=== PATIENT | female | born 1940 | race Caucasian/White ===

== ENCOUNTER 2019-07-16 11:21 | Inpatient (IN) ==
[2019-07-16 11:57] LABS: Eosinophils # (auto) 0.04 K/uL (0-0.5); Eosinophils % (auto) 0.9 %; Hemoglobin 10.3 g/dL (12.0-16.0); Immature Granulocytes # (auto) 0.02 K/uL (0.00-0.02); Immature Granulocytes % (auto) 0.4 %; Lymphocytes # (auto) 0.31 K/uL (1.2-3.4); Lymphocytes % (auto) 6.8 %; Mean Corpuscular Hemoglobin 27.9 pg (25-34); Mean Corpuscular Hgb Conc 31.2 g/dL (32-36); Mean Corpuscular Volume 89.4 fL (80-100); Mean Platelet Volume 9.3 fL (7.4-10.4); Monocytes # (auto) 0.65 K/uL (0.11-0.59); Monocytes % (auto) 14.2 %; Neutrophils # (auto) 3.57 K/uL (1.4-6.5); Neutrophils % (auto) 77.7 %; Platelet Count 144 K/uL (130-400); Red Blood Count 3.69 M/uL (4.2-5.4); White Blood Count 4.59 K/uL (4.8-10.8)
[2019-07-16 12:07] LABS: INR 1.2 (0.9-1.1); Partial Thromboplastin Ratio 0.9; Partial Thromboplastin Time 24.7 Seconds (21.0-31.0); Prothrombin Time 11.7 Seconds (9.0-12.0)
[2019-07-16] MEDS ORDERED: ALBUTEROL 0.083% NEBU SOLN 3 ML VIAL NEB STA (12:07)
[2019-07-16 12:18] LABS: Alanine Aminotransferase 16 U/L (12-78); Aspartate Aminotransferase 11 U/L (15-37); BUN Creatinine Ratio 25.9 (10-20); Blood Urea Nitrogen 14 mg/dl (7-18); Calcium 8.5 mg/dl (8.5-10.1); Carbon Dioxide 29 mmol/L (21-32); Chloride 102 mmol/L (98-107); Est GFR (African American) 104.9; Est GFR (Non-African American) 90.5; Glucose 151 mg/dl (70-99); Potassium 4.2 mmol/L (3.5-5.1); Sodium 139 mmol/L (136-145)
[2019-07-16 12:23] LABS: Alkaline Phosphatase 61 U/L (45-117); Bilirubin,Total 0.8 mg/dl (0.2-1); Globulin 3.1 gm/dl (2.5-4.0); Total Protein 6.1 gm/dl (6.4-8.2); Troponin I < 0.015 ng/ml (0-0.045)
--- NOTE | 2019-07-16 12:30 | XRay Report ---
XR chest 1V portable CLINICAL HISTORY: Shortness of breath COMPARISON STUDY: 07/24/2015 FINDINGS: There are patchy bilateral asymmetric airspace opacities left greater than right. The findi ngs are suspicious for a pneumonia. Clinical correlation and radiographic follow-up is recommended. T here are no pleural effusions. There is no overt failure. Chronic changes involve the right proximal humerus. IMPRESSION: Bilateral asymmetric airspace opacities left greater than right. Pneumonia is the diagnos is of exclusion. Clinical and radiographic follow-up is recommended. Electronically signed by: Perez Medina M.D. 07/16/2019 12:29 PM
[2019-07-16 12:35] LABS: Influenza A virus by PCR Neg for Influ A (Neg); Influenza B virus by PCR Neg for Influ B (Neg)
[2019-07-16] MEDS ORDERED: CEFEPIME 1,000 MG in SYRINGE 0 ML IV STA (13:09)
[2019-07-16 13:14] LABS: Appearance Urine Clear (Clear); Bacteria Urine Automated Negative (Negative); Bilirubin Urine Negative (Negative); Blood Urine Negative (Negative); Color Urine Dark Yellow; Epithelial Cell Urine Auto >30 /lpf (0-5); Glucose Urine UA Negative (Negative); Ketones Urine Negative (Negative); Leukocyte Esterase Urine Negative (Negative); Nitrite Urine Positive (Negative); Protein Urine 2+ (Negative); RBC Urine Automated 0-4 /hpf (0-4); Specific Gravity Urine 1.023 (1.000-1.030); Urobilinogen Urine Negative (Negative); pH Urine 5.5 (4.5-7.5)
--- NOTE | 2019-07-16 16:42 | History & Physical Report ---
Date of Service July 16, 2019 Assessment & Plan (1) Acute respiratory failure: Admit to PCU on telemetry Vital signs every 4 hours Start the cefepime in the ER for pneumonia and continues with ceftriaxone with doxycycline empirically Lactate pending, BNP pending, blood cultures pending, procalcitonin pending, respiratory cultures Follow-up with daily CBC CMP. Replenish electrolytes DuoNeb's every 4 hours Continue Breo Ellipta Solu-Medrol 40 mg IV twice daily for 3 doses then taper down DVT prophylaxis heparin 5000 units every 12 hours Full code Present on Admission?: Yes (2) Pneumonia: As above Present on Admission?: Yes (3) Hypertension: Appears to be stable at this time, continue amlodipine 10 mg tablet p.o. daily, carvedilol 3.125 p.o. daily, coenzyme every 10 200 mg capsule p.o. daily, furosemide 40 mg p.o. daily, hydralazine 25 mg p.o. 3 times daily, isosorbide mononitrate ER 120 mg tablets every 24 hours p.o. daily. Monitor blood pressure every 4 hours and adjust medication as necessary. Present on Admission?: Yes (4) Congestive heart failure: As above, BNP pending. Present on Admission?: Yes (5) Diabetes mellitus type 2 in obese: Accu-Cheks AC and at bedtime, try to avoid metformin while patient is hospitalized due to possible hypoglycemia and need for other diagnostic procedures and nephrotoxicity that may do occur as a consequence. Use rather sliding scale insulin and managed per pharmacy. Present on Admission?: Yes (6) Hyperlipidemia: Lipid panel in a.m. Present on Admission?: Yes History of Present Illness Chief Complaint: Shortness of breath and respiratory failure Primary Care Provider: John Munoz DO Patient is a 79 years old female with past medical history of congestive heart failure, diabetes mellitus type 2, hypertension, hyperlipidemia, recurrent urinary tract infections who presents to the emergency room with a complaint of shortness of breath and febrile illness for 2 weeks. Patient said that she had subjective fever yesterday and chills. Patient he is resting comfortably in the bed. She is right now on 2 L of oxygen for hypoxia. She uses only 1 L at home at night. Patient is ambulatory. Good appetite. Patient denies headache, chest pain, abdominal pain frequency urgency hemoptysis hematuria dysuria syncope near syncope and/or diarrhea. Labs are reviewed: WBC leukopenia of 4.59, hemoglobin 10.3, hematocrit 33, platelets 144, PT 11.7, INR 1.2, APTT 24.7, sodium 139, potassium 4.2, BUN 14, creatinine 0.55, GFR 90.5, AST 11, ALT 16, troponin 0 0.015-, urine positive for nitrates, leukocyte esterase negative, 5-10 urine white blood cells. BNP pending. Chest x-rays: Bilateral asymmetric expansile spot opacities left greater than the right. Pneumonia is diagnosis of exclusion. Decision was made to admit patient to PCU on telemetry for pneumonia and possible congestive heart failure. Allergies Allergy/AdvReac Type Severity Reaction Status Date / Time Bactrim Allergy Unknown MOUTH SORES Verified 10/21/15 05:55 Cipro Allergy Unknown SORE MOUTH Verified 10/21/15 05:55 ciprofloxacin Allergy Unknown SORE MOUTH Verified 07/16/19 12:00 oxycodone Allergy Unknown UPSET Verified 07/16/19 12:00 STOMACH sulfamethoxazole Allergy Unknown MOUTH SORES Verified 07/16/19 12:00 trimethoprim Allergy Unknown MOUTH SORES Verified 07/16/19 12:00 Home Medications Home Medications Medication Instructions Recorded Confirmed Type Lactobacillus 1 cap PO DAILY cap 05/25/19 07/16/19 History acidophilus-Bifidobac.animalis 31 billion cell capsule albuterol sulfate HFA 90 2 puffs INH BID PRN 05/25/19 07/16/19 History mcg/actuation aerosol inhaler alprazolam 0.25 mg tablet 0.25 mg PO DAILY tab 05/25/19 07/16/19 History amlodipine 10 mg tablet 10 mg PO DAILY tab 05/25/19 07/16/19 History coenzyme Q10 200 mg capsule 200 mg PO DAILY cap 05/25/19 07/16/19 History fluticasone furoate 100 1 puffs INHALATION DAILY ea 05/25/19 07/16/19 History mcg-vilanterol 25 mcg/dose inhalation powder hydralazine 25 mg tablet 25 mg PO TID #270 tab 05/25/19 07/16/19 History insulin glargine (U-300) conc. 300 46 units SUBCUT HS ml 05/25/19 07/16/19 History unit/mL (3 mL) subcutaneous pen isosorbide mononitrate ER 120 mg 120 mg PO DAILY tab 05/25/19 07/16/19 History tablet,extended release 24 hr methenamine mandelate 1 gram tablet 1 g PO BID tab 05/25/19 07/16/19 History mycophenolate mofetil 500 mg tablet 500 mg PO BID #120 tab 05/25/19 07/16/19 History prednisone 5 mg tablet 5 mg PO DAILY #60 tab 05/25/19 07/16/19 History sacubitril 49 mg-valsartan 51 mg 1 tab PO DAILY tab 05/25/19 07/16/19 History tablet sitagliptin 50 mg-metformin 1,000 1 tab PO BID tab 05/25/19 07/16/19 History mg tablet carvedilol 3.125 mg PO DAILY 07/16/19 07/16/19 History furosemide 40 mg PO DAILY 07/16/19 07/16/19 History naproxen 500 mg PO BID 07/16/19 07/16/19 History pyridostigmine bromide 60 mg PO DAILY 07/16/19 07/16/19 History rosuvastatin 5 mg PO DAILY 07/16/19 07/16/19 History Past Med/Surg History Medical History Arthritis Bladder disease Diabetes mellitus Dysuria H/O: hysterectomy HTN (hypertension) Hx of bronchitis Low back pain Nocturia Urinary urgency Family History Father Cardiac disorder Social History marital status: / current occupational status: retired Feels Safe at Home: Yes Smoking Status: Former smoker Review of Systems Review of Systems: All systems reviewed & are unremarkable except as noted in HPI & below Physical Exam Constitutional: WD/WN, vitals as above well developed, + ill appearing and + morbidly obese Eyes: PERRL, conjunctivae normal, anicteric sclerae ENMT: external ear and nose normal, oropharynx normal Neck: trachea midline, no thyromegaly Respiratory: normal respiratory effort Auscultation: + crackles, + wheezes and + bronchovesicular breath sounds Cardiovascular: RRR, no murmur, no edema Gastrointestinal (Abdomen): normal bowel sounds, soft, nontender, no hepatosplenomegaly Musculoskeletal: no cyanosis or clubbing, extremities motor strength 5/5 Skin: no rashes, warm and dry Neurologic: patellar DTR's 2+ bilat, sensation intact Psychiatric: A+Ox3, euthymic affect Lymphatic: no cervical or axillary lymphadenopathy Results & Data Vital Signs (Past 12 Hours) Vital Signs Temp Pulse Pulse Resp BP Pulse Ox 07/16/19 14:30 77 91 07/16/19 13:30 82 23 148/59 H 96 07/16/19 13:00 81 21 147/74 H 97 07/16/19 12:46 78 29 H 155/59 H 88 L 07/16/19 12:45 83 21 95 07/16/19 12:22 79 16 94 07/16/19 11:55 95 07/16/19 11:39 95 07/16/19 11:23 36.9 C 74 24 110/70 94 Code Status & VTE Plan Code Status Full code VTE Prophylaxis Plan VTE Prophylaxis will be ordered: Yes PG Care Time/CCT Total # of Minutes Spent Total Time Spent with Patient: Total time spent is greater than 50% in coordination of care (as documented) at patient's floor/unit and/or counseling patient:
--- NOTE | 2019-07-16 18:16 | Emergency Department Note ---
Entered by So Brush acting as a scribe for History of Present Illness General Chief complaint: Shortness of Breath/Dyspnea Stated complaint: BREATHLESS,WEAKNESS Source: patient History of Present Illness Onset (ago): day(s) (today) Location: chest Pain Consistency: + other (persistent) Maximum Pain Intensity: 0 Quality: + other (shortness of breath) Relieved By: + other (oxygen) Exacerbated By: + movement (exertion) Associated symptoms: + denies other symptoms (weight gain, leg swelling, rhinorrhea, ear pain, abdominal pain, dysuria), + cough and + other (sore throat, urinary frequency) The patient is a 79 year old female who presents to the Emergency Room with complaints of persistent shortness of breath starting today. The patient states that 10 days ago she started having a cold. She states that she had a dry cough and a sore throat. She reports that the cough was dry for 3-4 days and then became productive. She notes that she would cough up clear, but it was so thick that it made her feel like she was choking. She states that a week ago she went to her PCP and they gave her Tessalon Perles and Cephalexin to treat a UTI. She states that today her cough seemed better, but she was short of breath. She states that it is worse with exertion. She reports that she put her oxygen on that she typically only wears 1 L at night because she couldnt breathe. She states that it offered some relief, but she decided to come to the ED. The patient notes that she has only been on oxygen at night since she was sick a year ago with similar symptoms. The patient complains of urinary frequency. The patient denies weight gain, leg swelling, rhinorrhea, ear pain, abdominal pain, and dysuria. Home Medications Home Medications Medication Instructions Recorded Confirmed Type Lactobacillus 1 cap PO DAILY cap 05/25/19 07/16/19 History acidophilus-Bifidobac.animalis 31 billion cell capsule albuterol sulfate HFA 90 2 puffs INH BID PRN 05/25/19 07/16/19 History mcg/actuation aerosol inhaler alprazolam 0.25 mg tablet 0.25 mg PO DAILY tab 05/25/19 07/16/19 History amlodipine 10 mg tablet 10 mg PO DAILY tab 05/25/19 07/16/19 History coenzyme Q10 200 mg capsule 200 mg PO DAILY cap 05/25/19 07/16/19 History fluticasone furoate 100 1 puffs INHALATION DAILY ea 05/25/19 07/16/19 History mcg-vilanterol 25 mcg/dose inhalation powder hydralazine 25 mg tablet 25 mg PO TID #270 tab 05/25/19 07/16/19 History insulin glargine (U-300) conc. 300 46 units SUBCUT HS ml 05/25/19 07/16/19 History unit/mL (3 mL) subcutaneous pen isosorbide mononitrate ER 120 mg 120 mg PO DAILY tab 05/25/19 07/16/19 History tablet,extended release 24 hr methenamine mandelate 1 gram tablet 1 g PO BID tab 05/25/19 07/16/19 History mycophenolate mofetil 500 mg tablet 500 mg PO BID #120 tab 05/25/19 07/16/19 History prednisone 5 mg tablet 5 mg PO DAILY #60 tab 05/25/19 07/16/19 History sacubitril 49 mg-valsartan 51 mg 1 tab PO DAILY tab 05/25/19 07/16/19 History tablet sitagliptin 50 mg-metformin 1,000 1 tab PO BID tab 05/25/19 07/16/19 History mg tablet carvedilol 3.125 mg PO DAILY 07/16/19 07/16/19 History furosemide 40 mg PO DAILY 07/16/19 07/16/19 History naproxen 500 mg PO BID 07/16/19 07/16/19 History pyridostigmine bromide 60 mg PO DAILY 07/16/19 07/16/19 History rosuvastatin 5 mg PO DAILY 07/16/19 07/16/19 History Allergies Allergy/AdvReac Type Severity Reaction Status Date / Time Bactrim Allergy Unknown MOUTH SORES Verified 10/21/15 05:55 Cipro Allergy Unknown SORE MOUTH Verified 10/21/15 05:55 ciprofloxacin Allergy Unknown SORE MOUTH Verified 07/16/19 12:00 oxycodone Allergy Unknown UPSET Verified 07/16/19 12:00 STOMACH sulfamethoxazole Allergy Unknown MOUTH SORES Verified 07/16/19 12:00 trimethoprim Allergy Unknown MOUTH SORES Verified 07/16/19 12:00 Past Med/Surg History Medical History Arthritis Bladder disease Diabetes mellitus Dysuria H/O: hysterectomy HTN (hypertension) Hx of bronchitis Low back pain Nocturia Urinary urgency Family History Father Cardiac disorder Social History Preferred Language: Tuvaluan Communication Ability: Effective Carriage Feeder Required: No Beliefs That Will Affect Care: None marital status: / Current Living Situation: Family Current Living Situation Comment: living with daughter current occupational status: retired Other Information That Helps Us Care for You: No Feels Safe at Home: Yes Safety Concerns: Feels Safe At This Time Smoking Status: Former smoker Tobacco Type: cigarettes ; Cigarettes Per Day: 3- 4 ; Do You Dip or Chew Tobacco: No ; Smoking End Date: 2015 ; Second Hand Exposure: No ; Tobacco Cessation Education Requested by Patient: No Hx Alcohol Use: No Hx Substance Use: No Review of Systems See HPI for pertinent positives & negatives. and A total of 10 systems reviewed and were otherwise negative Physical Exam Vital Signs Vital Signs - 24 hr 07/16/19 11:23 07/16/19 11:39 07/16/19 11:55 Temperature 36.9 C Temperature Source Oral Sepsis Recent Fever Within 48 Hours No Sepsis New/Unexplained Change in Mental Status No Sepsis Action Taken by Nursing No Action Required Pulse Rate 74 Pulse Rate [Apical] Pulse Rate from SpO2 Sensor Respiratory Rate 24 Respiratory Effort / Characteristics Non-Labored Spontaneous Respiratory Depth Normal Respiratory Pattern Regular Blood Pressure 110/70 Blood Pressure Mean 83 Blood Pressure Position Sitting Pulse Oximetry 94 95 95 Oxygen Delivery Method Nasal Cannula Nasal Cannula Nasal Cannula Oxygen Flow Rate 2 2 2 07/16/19 12:22 07/16/19 12:45 07/16/19 12:46 Temperature Temperature Source Sepsis Recent Fever Within 48 Hours Sepsis New/Unexplained Change in Mental Status Sepsis Action Taken by Nursing Pulse Rate 83 78 Pulse Rate [Apical] 79 Pulse Rate from SpO2 Sensor 73 Respiratory Rate 16 21 29 H Respiratory Effort / Characteristics Non-Labored Spontaneous Respiratory Depth Respiratory Pattern Blood Pressure 155/59 H Blood Pressure Mean 91 Blood Pressure Position Pulse Oximetry 94 95 88 L Oxygen Delivery Method Nasal Cannula Nasal Cannula Room Air Oxygen Flow Rate 2 2 07/16/19 13:00 07/16/19 13:30 07/16/19 14:30 Temperature Temperature Source Sepsis Recent Fever Within 48 Hours Sepsis New/Unexplained Change in Mental Status Sepsis Action Taken by Nursing Pulse Rate 81 82 77 Pulse Rate [Apical] Pulse Rate from SpO2 Sensor 80 78 77 Respiratory Rate 21 23 Respiratory Effort / Characteristics Respiratory Depth Respiratory Pattern Blood Pressure 147/74 H 148/59 H Blood Pressure Mean 98 88 Blood Pressure Position Pulse Oximetry 97 96 91 Oxygen Delivery Method Nasal Cannula Nasal Cannula Oxygen Flow Rate 2 2 GENERAL: Sitting up in bed on 1L nasal cannular. Talking in full sentences. No acute distress. EYE EXAM: normal conjunctiva OROPHARYNX: no exudate, no erythema, lips, buccal mucosa, and tongue normal and mucous membranes are moist NECK: supple, no nuchal rigidity, no adenopathy, non-tender LUNGS: Diminished breath sounds at the bases. Normal chest wall mechanics HEART: no murmurs, S1 normal and S2 normal ABDOMEN: abdomen soft, non-tender, normo-active bowel sounds, no masses, no rebound or guarding. BACK: Back is symmetrical on inspection and there is no deformity, no midline tenderness, no CVA tenderness. SKIN: no rashes and no bruising UPPER EXTREMITIES: upper extremities are grossly normal. LOWER EXTREMITIES: No pitting edema. Calves are equal bilaterally. NEURO EXAM: Normal sensorium, cranial nerves II-XII grossly intact, normal speech, no gross weakness of arms, no gross weakness of legs. Course ED COURSE: Vital signs were reviewed and showed hypertension. The patients medical record was reviewed The above diagnostic studies were performed and reviewed. ED treatments and interventions as stated above. 1203: The patient was evaluated in room C9. A complete history and physical examination was performed. 1408: I discussed the patient's case with Dr. Diane ALBARADO Hospitalist. She will evaluate the patient for further management. 1415: Upon reevaluation, the patient is resting comfortably. I discussed my findings with the patient and she understands and agrees with the treatment plan. Based on the patients age, coexisting illnesses, exam and lab findings the deci ten to treat as an inpatient was made. The patient remained stable while under my care. The patient will be evaluated for further management. Consultations Consultation #1: I discussed the patient's case with Dr. Diane ALBARADO Hospitalist. She will evaluate the patient for further management. Time: 14:08 Administered Medications Discontinued Medications Albuterol (Ventolin 0.083% 2.5mg/3ml) 2.5 mg NEB NOW STA Stop: 07/16/19 12:08 Last Admin: 07/16/19 12:22 Dose: 2.5 mg Documented by: [id number] Cefepime HCl 1,000 mg/ Syringe 11.3 mls @ 5.5 mls/min IV NOW STA; Protocol Stop: 07/16/19 13:11 Last Admin: 07/16/19 14:01 Dose: 5.5 mls/min Documented by: [id number] Medical Decision Making Differential Diagnosis Differential diagnoses includes but is not limited to pneumonia, bronchitis, COPD/Asthma exacerbation, pneumothorax, pulmonary embolism, congestive heart failure, acute coronary syndrome Medical Records Attestation: I reviewed the patient's medical records. Home Medications Current Medication List: was personally reviewed by me Laboratory Data Attestation: I reviewed the patient's lab results. Result diagrams: 07/16/19 11:40 07/16/19 11:40 Lab Results 07/16/19 07/16/19 07/16/19 Range/Units 11:40 11:40 11:40 WBC 4.59 L (4.8-10.8) K/uL RBC 3.69 L (4.2-5.4) M/uL Hgb 10.3 L (12.0-16.0) g/dL Hct 33.0 L (37-47) % MCV 89.4 (80-100) fL MCH 27.9 (25-34) pg MCHC 31.2 L (32-36) g/dL RDW Std Deviation 52.0 H (36.4-46.3) fL RDW Coeff of John 16.0 H (11.5-14.5) % Plt Count 144 (130-400) K/uL MPV 9.3 (7.4-10.4) fL Immature Gran % (Auto) 0.4 % Neut % (Auto) 77.7 % Lymph % (Auto) 6.8 % Bleckley % (Auto) 14.2 % Eos % (Auto) 0.9 % Baso % (Auto) 0.0 % Immature Gran # (Auto) 0.02 (0.00-0.02) K/uL Neut # (Auto) 3.57 (1.4-6.5) K/uL Lymph # (Auto) 0.31 L (1.2-3.4) K/uL Bleckley # (Auto) 0.65 H (0.11-0.59) K/uL Eos # (Auto) 0.04 (0-0.5) K/uL Baso # (Auto) 0.00 (0-0.2) K/uL PT 11.7 (9.0-12.0) Seconds INR 1.2 H (0.9-1.1) APTT 24.7 (21.0-31.0) Seconds PTT Ratio 0.9 Sodium 139 (136-145) mmol/L Potassium 4.2 (3.5-5.1) mmol/L Chloride 102 (98-107) mmol/L Carbon Dioxide 29 (21-32) mmol/L Anion Gap 8.0 (3-11) BUN 14 (7-18) mg/dl Creatinine 0.55 L (0.6-1.2) mg/dl Est Cr Clr Drug Dosing Not Reportable Est GFR ( Amer) 104.9 Est GFR (Non-Af Amer) 90.5 BUN/Creatinine Ratio 25.9 H (10-20) Glucose 151 H (70-99) mg/dl Calcium 8.5 (8.5-10.1) mg/dl Total Bilirubin 0.8 (0.2-1) mg/dl AST 11 L (15-37) U/L ALT 16 (12-78) U/L Alkaline Phosphatase 61 (45-117) U/L Troponin I < 0.015 (0-0.045) ng/ml Total Protein 6.1 L (6.4-8.2) gm/dl Albumin 3.0 L (3.4-5.0) gm/dl Globulin 3.1 (2.5-4.0) gm/dl Albumin/Globulin Ratio 1.0 (0.9-2) Urine Color Urine Appearance (Clear) Urine pH (4.5-7.5) Ur Specific [place] (1.000-1.030) Urine Protein (Negative) Urine Glucose (UA) (Negative) Urine Ketones (Negative) Urine Blood (Negative) Urine Nitrite (Negative) Urine Bilirubin (Negative) Urine Urobilinogen (Negative) Ur Leukocyte Esterase (Negative) Urine WBC (Auto) (0-5) /hpf Urine RBC (Auto) (0-4) /hpf U Hyaline Cast (Auto) (0-5) /lpf U Epithel Cells (Auto) (0-5) /lpf Urine Bacteria (Auto) (Negative) Influenza Type A (PCR) (Neg) Influenza Type B (PCR) (Neg) 07/16/19 07/16/19 Range/Units 11:55 12:45 WBC (4.8-10.8) K/uL RBC (4.2-5.4) M/uL Hgb (12.0-16.0) g/dL Hct (37-47) % MCV (80-100) fL MCH (25-34) pg MCHC (32-36) g/dL RDW Std Deviation (36.4-46.3) fL RDW Coeff of John (11.5-14.5) % Plt Count (130-400) K/uL MPV (7.4-10.4) fL Immature Gran % (Auto) % Neut % (Auto) % Lymph % (Auto) % Bleck[place] % (Auto) % Eos % (Auto) % Baso % (Auto) % Immature Gran # (Auto) (0.00-0.02) K/uL Neut # (Auto) (1.4-6.5) K/uL Lymph # (Auto) (1.2-3.4) K/uL [place] # (Auto) (0.11-0.59) K/uL Eos # (Auto) (0-0.5) K/uL Baso # (Auto) (0-0.2) K/uL PT (9.0-12.0) Seconds INR (0.9-1.1) APTT (21.0-31.0) Seconds PTT Ratio Sodium (136-145) mmol/L Potassium (3.5-5.1) mmol/L Chloride (98-107) mmol/L Carbon Dioxide (21-32) mmol/L Anion Gap (3-11) BUN (7-18) mg/dl Creatinine (0.6-1.2) mg/dl Est Cr Clr Drug Dosing Est GFR ( Amer) Est GFR (Non-Af Amer) BUN/Creatinine Ratio (10-20) Glucose (70-99) mg/dl Calcium (8.5-10.1) mg/dl Total Bilirubin (0.2-1) mg/dl AST (15-37) U/L ALT (12-78) U/L Alkaline Phosphatase (45-117) U/L Troponin I (0-0.045) ng/ml Total Protein (6.4-8.2) gm/dl Albumin (3.4-5.0) gm/dl Globulin (2.5-4.0) gm/dl Albumin/Globulin Ratio (0.9-2) Urine Color Dark Yellow Urine Appearance Clear (Clear) Urine pH 5.5 (4.5-7.5) Ur Specific [place] 1.023 (1.000-1.030) Urine Protein 2+ H (Negative) Urine Glucose (UA) Negative (Negative) Urine Ketones Negative (Negative) Urine Blood Negative (Negative) Urine Nitrite Positive A (Negative) Urine Bilirubin Negative (Negative) Urine Urobilinogen Negative (Negative) Ur Leukocyte Esterase Negative (Negative) Urine WBC (Auto) 5-10 H (0-5) /hpf Urine RBC (Auto) 0-4 (0-4) /hpf U Hyaline Cast (Auto) 1-5 (0-5) /lpf U Epithel Cells (Auto) >30 H (0-5) /lpf Urine Bacteria (Auto) Negative (Negative) Influenza Type A (PCR) Neg for Influ A (Neg) Influenza Type B (PCR) Neg for Influ B (Neg) Imaging Data Radiologist's Impression: Radiology results as stated below per my review and the radiologist's interpretation: XR chest 1V portable CLINICAL HISTORY: Shortness of breath COMPARISON STUDY: 07/24/2015 FINDINGS: There are patchy bilateral asymmetric airspace opacities left greater than right. The findings are suspicious for a pneumonia. Clinical correlation and radiographic follow-up is recommended. There are no pleural effusions. There is no overt failure. Chronic changes involve the right proximal humerus. IMPRESSION: Bilateral asymmetric airspace opacities left greater than right. Pne umonia is the diagnosis of exclusion. Clinical and radiographic follow-up is recommended. Electronically signed by: Perez Medina M.D. 07/16/2019 12:29 PM ECG Data Attestation: I personally reviewed and interpreted this ECG as follows: Indication: SOB/dyspnea Rate (beats per minute): 78 Rhythm: sinus rhythm Findings: + other (normal axis), + RBBB, + ST depression (V1-V3) and + T-wave inversion Comparison ECG Date: from (07/24/2015) Change: the following changes noted (TWI, RBBB, and ST depression are new) Blood Pressure Blood Pressure Findings: Elevated blood pressure Blood Pressure Disposition: further management by hospitalist TREMAINE Narrative Patient is a 79-year-old female who presents the ER for cough, congestion associate with shortness of breath. She has been increasing her nasal cannula which she normally only wears at night. Her symptoms started mainly on Tuesday. History of myasthenia gravis. IV was established blood work was obtained and showed a mild leukopenia. Mild anemia 10.3. INR was unremarkable. BMP along with LFTs bilirubin and troponin was negative. UA did have a small amount nitrates. Chest x-ray with bilateral infiltrates. Patient was given IV antibiotics. Influenza was negative. She is given IV fluids. She was on 1 L nasal cannula while in the ER. She was updated bedside. She was discussed with the hospitalist for admission for bilateral pneumonia. EKG did show new right bundle branch block. Impression & Plan Bilateral pneumonia, Shortness of breath Discharge Plan Visit Data Chief Complaint: Shortness of Breath/Dyspnea Stated Complaint: BREATHLESS,WEAKNESS ED Provider: Ben Aguillon Discharge Problem: Bilateral pneumonia, Shortness of breath Patient Disposition: Being Evaluated by Hospitalist Discharge Problem: Bilateral pneumonia Qualifiers: Pneumonia type: due to unspecified organism Lung location: unspecified part of lung Qualified Code(s): J18.9 - Pneumonia, unspecified organism The scribe's documentation has been prepared under my direction and personally reviewed by me in its entirety. I confirm that the note above accurately reflects all work, treatment, procedures, and medical decision making performed by me.
[2019-07-16] MEDS ORDERED: NON-FORMULARY MEDICATION (Coenzyme Q10 200 MG) PO SCH (18:34)
[2019-07-16] MEDS ORDERED: ACETAMINOPHEN 325 MG TAB PO PRN (18:34)
[2019-07-16] MEDS ORDERED: DEXTROSE 50% 50 ML SYRINGE IV PRN (18:34)
[2019-07-16] MEDS ORDERED: SODIUM CHLORIDE 0.9% 1000ML 500 ML IV SCH (18:34)
[2019-07-16] MEDS ORDERED: GLUCOSE 10 TABS/TUBE PO PRN (18:34)
[2019-07-16] MEDS ORDERED: MAGNESIUM HYDROXIDE SUSP 30 ML UDC PO PRN (18:34)
[2019-07-16] MEDS ORDERED: CARBOHYDRATES FOR HYPOGLYCEMIA PO PRN (18:34)
[2019-07-16] MEDS ORDERED: ZOLPIDEM TARTRATE 5 MG TAB PO PRN (18:34)
[2019-07-16] MEDS ORDERED: POLYETHYLENE (MIRALAX) 17 GM PACK PO PRN (18:34)
[2019-07-16] MEDS ORDERED: GLUCOSE 40% GEL 15 GM TUBE PO PRN (18:34)
[2019-07-16] MEDS ORDERED: GLUCAGON FOR INJ 1 MG VIAL SQ PRN (18:34)
[2019-07-16] MEDS ORDERED: ALBUT/IPRATROP 3MG/0.5MG NEB 3 ML VIAL NEB PRN (18:34)
[2019-07-16] MEDS ORDERED: ALUMINUM/MAGNESIUM SUSP 30 ML UDC PO PRN (18:34)
[2019-07-16] MEDS ORDERED: ONDANSETRON INJ 2 MG/ML 2 ML VIAL IV PRN (18:34)
[2019-07-16] MEDS ORDERED: PHARMACY GLYCEMIC MGMT CONSULT PRN (20:02)
[2019-07-16] MEDS: ROSUVASTATIN CALCIUM 5 MG TAB PO SCH (20:28)
[2019-07-16] MEDS: AMLODIPINE BESYLATE 5 MG TAB PO SCH (20:29)
[2019-07-16] MEDS: NAPROXEN 250 MG TAB PO SCH (20:30)
[2019-07-16] MEDS: MYCOPHENOLATE MOFETIL 250 MG CAP PO SCH (20:30)
[2019-07-16] MEDS: FUROSEMIDE 40 MG TAB PO SCH (20:31)
[2019-07-16] MEDS ORDERED: INSULIN GLARGINE SQ SCH (21:00)
[2019-07-16] MEDS ORDERED: INSULIN GLARGINE SOLOSTAR 100 UNITS/ML 3 ML PEN SC ONE (21:00)
[2019-07-16] MEDS: SACUBITRIL-VALSARTAN 49/51 MG TAB PO SCH (21:29)
[2019-07-16] MEDS: METHENAMINE HIPPURATE 1 GM TAB PO SCH (21:29)
[2019-07-16] MEDS: HEPARIN SOD 5,000 UNIT/0.5 ML VIAL SQ SCH (21:30)
[2019-07-16] MEDS: PYRIDOSTIGMINE BROMIDE 60 MG TAB PO SCH (21:30)
[2019-07-16] MEDS: methylPREDNISolone 40 MG in SYRINGE 0 ML IV SCH (21:31)
[2019-07-16] MEDS: ALPRAZolam 0.25 MG TABLET PO SCH (21:34)
[2019-07-16] MEDS: DOXYCYCLINE HYCLATE 100 MG in DEXTROSE 5% 100 ML IV SCH (21:35)
[2019-07-16] MEDS: INSULIN ASPART 100 UNITS/ML 3 ML PEN SC SCH (21:40)
[2019-07-17] MEDS: INSULIN ASPART 100 UNITS/ML 3 ML PEN SC SCH ×6 (00:19→21:03)
[2019-07-17 05:44] LABS: Hematocrit (blood only) 33.6 % (37-47); Hemoglobin 10.7 g/dL (12.0-16.0); Immature Granulocytes # (auto) 0.04 K/uL (0.00-0.02); Immature Granulocytes % (auto) 1.3 %; Lymphocytes # (auto) 0.23 K/uL (1.2-3.4); Lymphocytes % (auto) 7.6 %; Mean Corpuscular Hemoglobin 28.4 pg (25-34); Mean Corpuscular Hgb Conc 31.8 g/dL (32-36); Mean Corpuscular Volume 89.1 fL (80-100); Mean Platelet Volume 9.7 fL (7.4-10.4); Monocytes # (auto) 0.13 K/uL (0.11-0.59); Monocytes % (auto) 4.3 %; Neutrophils # (auto) 2.64 K/uL (1.4-6.5); Neutrophils % (auto) 86.8 %; Platelet Count 146 K/uL (130-400); RDW Coefficient of Variation 15.9 % (11.5-14.5); RDW Standard Deviation 51.5 fL (36.4-46.3); Red Blood Count 3.77 M/uL (4.2-5.4); White Blood Count 3.04 K/uL (4.8-10.8)
[2019-07-17 06:14] LABS: BUN Creatinine Ratio 26.9 (10-20); Calcium 8.5 mg/dl (8.5-10.1); Creatinine Clr Calc Pharmacy 122.3 ml/min; Est GFR (African American) 110.4; Est GFR (Non-African American) 95.3; Potassium 4.2 mmol/L (3.5-5.1)
[2019-07-17 06:25] LABS: Bilirubin,Total 0.6 mg/dl (0.2-1); Thyroid Stimulating Hormone 0.303 uIu/ml (0.300-4.500)
[2019-07-17 06:27] LABS: Estimated Average Glucose 105 mg/dl; Hemoglobin A1C 5.3 % (4.5-5.6)
[2019-07-17] MEDS: ISOSORBIDE MONO EXTENDED REL 60 MG TABCR PO SCH (07:54)
[2019-07-17] MEDS: HEPARIN SOD 5,000 UNIT/0.5 ML VIAL SQ SCH ×2 (07:55→21:08)
[2019-07-17] MEDS: NAPROXEN 250 MG TAB PO SCH ×2 (07:56→21:03)
[2019-07-17] MEDS: MYCOPHENOLATE MOFETIL 250 MG CAP PO SCH ×2 (07:57→21:06)
[2019-07-17] MEDS: FUROSEMIDE 40 MG TAB PO SCH (07:58)
[2019-07-17] MEDS: AMLODIPINE BESYLATE 5 MG TAB PO SCH (08:00)
[2019-07-17] MEDS: ROSUVASTATIN CALCIUM 5 MG TAB PO SCH (08:00)
[2019-07-17] MEDS: METHENAMINE HIPPURATE 1 GM TAB PO SCH ×2 (08:01→21:03)
[2019-07-17] MEDS: PYRIDOSTIGMINE BROMIDE 60 MG TAB PO SCH (08:01)
[2019-07-17] MEDS: SACUBITRIL-VALSARTAN 49/51 MG TAB PO SCH (08:02)
[2019-07-17] MEDS: methylPREDNISolone 40 MG in SYRINGE 0 ML IV SCH (08:03)
[2019-07-17] MEDS: LACTOBACILLUS ACIDOPHILUS 1 GM PACK PO SCH (08:03)
[2019-07-17] MEDS: carvediloL 3.125 MG TAB PO SCH (08:04)
[2019-07-17] MEDS: DOXYCYCLINE HYCLATE 100 MG in DEXTROSE 5% 100 ML IV SCH ×2 (08:08→21:01)
[2019-07-17] MEDS: cefTRIAXone SODIUM 2,000 MG in DEXTROSE 5% 50 ML IV SCH (08:10)
[2019-07-17] MEDS: ALPRAZolam 0.25 MG TABLET PO SCH ×2 (08:17→21:18)
[2019-07-17] MEDS ORDERED: INSULIN GLARGINE SOLOSTAR 100 UNITS/ML 3 ML PEN SC ONE ×2 (09:00→21:00)
[2019-07-17] MEDS ORDERED: FLUTICASONE FUROATE VILANTEROL INH SCH (09:00)
[2019-07-17] MEDS ORDERED: Nursing to Pharmacy Communication ONE (09:48)
--- NOTE | 2019-07-17 14:36 | Hospitalist Progress Note ---
Date of Service July 17, 2019 Assessment & Plan (1) Pneumonia: CXR on 07/16 showed airspace opacities left greater than right. Flu swab was negative. - Continue ceftriaxone/doxycycline - Will taper steroid to prednisone daily from IV - Can worsen weakness from acetylcholinesterase inhibitors, so do not want a prolonged period - Continue DuoNebs PRN (2) Acute respiratory failure: Due to pneumonia. - See above (3) Hypertension: BP 125/65. - Continue home amlodipine, carvedilol, furosemide, hydralazine, and Imdur (4) Congestive heart failure: No major shortness of breath at present. Low concern for exacerbation. - BNP was 1025 on admission. - Continue heart failure regimen (5) Diabetes mellitus type 2 in obese: A1c was 5.3% this admission. - Hold home oral meds. - Sliding scale insulin (6) Hyperlipidemia: - Continue statin (7) Myasthenia gravis: Presumed diagnosis of myasthenia gravis given the CellCept & pyridostigmine. - Continue home meds - No indication of exacerbation at this time - Avoid meds that can potentiate an MG crisis. (8) DVT prophylaxis: Heparin 5000 units Q12h Subjective Feeling better today. Tired because she did not sleep well. Some cough still. Review of Systems Review of Systems: All systems reviewed & are unremarkable except as noted in HPI & below Physical Exam Constitutional: WD/WN, vitals as above Eyes: EOM intact bilaterally; no conjunctival abnormality ENMT: external ear and nose normal, oropharynx normal Neck: trachea midline, no thyromegaly normal visual inspection Respiratory: normal respiratory effort, lungs clear to auscultation no respiratory distress Cardiovascular: RRR, no murmur, no edema Gastrointestinal (Abdomen): Inspection/Auscultation: abdomen normal to inspection; abdomen not distended Musculoskeletal: no cyanosis or clubbing, extremities motor strength 5/5 Skin: no rashes, warm and dry Neurologic: moves all extremities and awake Psychiatric: Orientation: alert, oriented to person and cooperative Results & Data Vital Signs (Past 12 Hours) Vital Signs Temp Pulse Pulse Pulse Resp BP Pulse Ox 07/17/19 13:11 125/64 07/17/19 11:55 36.7 C 59 L 20 103/51 L 91 07/17/19 07:44 36.4 C L 74 18 164/84 H 94 07/17/19 07:08 139/66 97 07/17/19 06:26 67 07/17/19 03:33 92 07/17/19 03:30 36.7 C 71 18 130/59 L 87 L PG Care Time/CCT Total # of Minutes Spent Total Time Spent with Patient: Total time spent is greater than 50% in coordin ation of care (as documented) at patient's floor/unit and/or counseling patient:
--- NOTE | 2019-07-17 15:03 | Pharmacy Report ---
Glycemic Control Consultation - Date of Service July 17, 2019 - Scope Scope: Glycemic Pharmacist consulted for glycemic control and to write orders per [facility] inpatient glycemic control protocol - Objective Weight: 107.7 kg Accuchecks BSG (last 24hrs): 07/16/19 07/17/19 07/17/19 20:40 00:10 04:16 Glucose POC Glucose 192 H 186 H 281 H 07/17/19 07/17/19 07/17/19 05:13 07:18 11:06 Glucose 248 H POC Glucose 204 H 91 Laboratory Data (last 24hrs): 07/17/19 05:13 Potassium 4.2 Carbon Dioxide 29 Anion Gap 6.0 Creatinine 0.47 L Est Cr Clr Drug Dosing 122.3 HbA1c: Hemoglobin A1c 5.3 % (4.5-5.6) 07/17/19 05:13 - Recent Pertinent Medications Outpatient Anti-diabetic Regimen: * Toujeo 46 units SC HS * Metformin/sitagliptin 1000/50 mg po BID * A1c = 5.3 % 07/17/19 The patient is currently receiving: * Basal insulin: Lantus 46 units x1 07/16 PM * Correctional Insulin: Novolog Correction per scale ACHS Goal Range: Low 110 mg/dL - High 140 mg/dL Correction Factor: 15 mg/dL/unit * Prandial insulin: Per carb ratio of 1 unit per 5 grams CHO consumed * Oral Agents: On hold Risk Factors for Insulin Resistance: * Steroids: methylprednisolone 40 mg IV q12h (scheduled to stop after dose tonight) * Infection: PNA, on ceftriaxone and doxycycline * Diet: T2DM - Assessment & Plan Assessment & Plan: ASSESSMENT: * 79 yo F with persistent hyperglycemia last night and overnight. * AM fasting BSG elevated to 204 mg/dL despite a total of 14 units of correctional insulin received overnight. Will give an additional 20 units of Lantus this AM * BSG decreased significantly from breakfast to lunch (204 to 91 mg/dL) - possibly 2nd Novolog parameters too tight. Will loosen Novolog * Will add sliding scale Lantus tonight based on BSG - will not be too aggressive as steroids are likely tapering tomorrow * Will add one overnight check 2nd decreased Lantus dose this evening PLAN FOR INPATIENT GLYCEMIC CONTROL: * Holding outpatient oral diabetes medications * Basal insulin * Lantus 20 units SQ x1 this AM then 15-30 units tonight if BSG > 110 mg/dL * Bolus insulin * NovoLog per scale ACHS or Q6hrs while NPO * Goal Range: Low 110 mg/dL - High 140 mg/dL * Correction Factor: 20 mg/dL/unit * Nutritional / Prandial insulin per carb ratio of 1 unit per 7 grams CHO consumed * Please note that the plan above was derived based on current level of insulin resistance and hospital stress. These recommendations are appropriate for inpatient admission only. Plan of care upon discharge will need to be reassessed to avoid potential outpatient hypo/hyperglycemia. Thank you.
[2019-07-18] MEDS ORDERED: INSULIN ASPART 100 UNITS/ML 3 ML PEN SC SCH (02:00)
[2019-07-18 06:59] LABS: Basophils # (auto) 0.01 K/uL (0-0.2); Basophils % (auto) 0.2 %; Eosinophils # (auto) 0.03 K/uL (0-0.5); Eosinophils % (auto) 0.6 %; Hematocrit (blood only) 33.6 % (37-47); Hemoglobin 10.5 g/dL (12.0-16.0); Immature Granulocytes # (auto) 0.04 K/uL (0.00-0.02); Immature Granulocytes % (auto) 0.8 %; Mean Corpuscular Hemoglobin 28.1 pg (25-34); Mean Corpuscular Hgb Conc 31.3 g/dL (32-36); Mean Corpuscular Volume 89.8 fL (80-100); Mean Platelet Volume 9.8 fL (7.4-10.4); Monocytes # (auto) 0.52 K/uL (0.11-0.59); Monocytes % (auto) 10.4 %; Neutrophils # (auto) 3.82 K/uL (1.4-6.5); Platelet Count 171 K/uL (130-400); RDW Standard Deviation 51.9 fL (36.4-46.3); Red Blood Count 3.74 M/uL (4.2-5.4); White Blood Count 5.02 K/uL (4.8-10.8)
[2019-07-18 07:27] LABS: Albumin Level 3.1 gm/dl (3.4-5.0); BUN Creatinine Ratio 35.4 (10-20); Calcium 8.9 mg/dl (8.5-10.1); Creatinine Clr Calc Pharmacy 102.6 ml/min; Est GFR (African American) 104.2; Est GFR (Non-African American) 89.9; Potassium 3.8 mmol/L (3.5-5.1)
[2019-07-18 07:30] LABS: Albumin Globulin Ratio 1.1 (0.9-2); Bilirubin,Total 0.6 mg/dl (0.2-1); Globulin 2.7 gm/dl (2.5-4.0); Total Protein 5.8 gm/dl (6.4-8.2)
[2019-07-18] MEDS: SACUBITRIL-VALSARTAN 49/51 MG TAB PO SCH ×2 (08:45)
[2019-07-18] MEDS: LACTOBACILLUS ACIDOPHILUS 1 GM PACK PO SCH (08:45)
[2019-07-18] MEDS: ROSUVASTATIN CALCIUM 5 MG TAB PO SCH (08:45)
[2019-07-18] MEDS: HEPARIN SOD 5,000 UNIT/0.5 ML VIAL SQ SCH ×2 (08:45→20:30)
[2019-07-18] MEDS: MYCOPHENOLATE MOFETIL 250 MG CAP PO SCH ×2 (08:45→20:29)
[2019-07-18] MEDS: FUROSEMIDE 40 MG TAB PO SCH (08:46)
[2019-07-18] MEDS: predniSONE 20 MG TAB PO SCH (08:46)
[2019-07-18] MEDS: PYRIDOSTIGMINE BROMIDE 60 MG TAB PO SCH (08:46)
[2019-07-18] MEDS: AMLODIPINE BESYLATE 5 MG TAB PO SCH (08:46)
[2019-07-18] MEDS: NAPROXEN 250 MG TAB PO SCH ×2 (08:46→20:30)
[2019-07-18] MEDS: ISOSORBIDE MONO EXTENDED REL 60 MG TABCR PO SCH (08:46)
[2019-07-18] MEDS: cefTRIAXone SODIUM 2,000 MG in DEXTROSE 5% 50 ML IV SCH (08:47)
[2019-07-18] MEDS: DOXYCYCLINE HYCLATE 100 MG in DEXTROSE 5% 100 ML IV SCH ×2 (08:47→20:29)
[2019-07-18] MEDS: METHENAMINE HIPPURATE 1 GM TAB PO SCH ×2 (08:47→20:29)
[2019-07-18] MEDS: INSULIN ASPART 100 UNITS/ML 3 ML PEN SC SCH ×4 (08:50→20:31)
[2019-07-18] MEDS: carvediloL 3.125 MG TAB PO SCH (08:56)
--- NOTE | 2019-07-18 13:15 | Pharmacy Report ---
Pharmacy Glycemic Short Note 2 - Date of Service July 18, 2019 - Glycemic Short BSG Results (Last 24 hours): 07/17/19 07/17/19 07/18/19 16:51 20:18 02:05 Glucose POC Glucose 175 H 249 H 121 H 07/18/19 07/18/19 07/18/19 06:21 08:02 11:51 Glucose 63 L POC Glucose 80 150 H OUTPATIENT ANTIDIABETIC REGIMEN: * Toujeo 46 units SC HS * Metformin/sitagliptin 1000/50 mg po BID * A1c = 5.3 % 07/17/19 The patient is currently receiving: * Basal insulin: Lantus 50 units total on 07/17 * Correctional Insulin: Novolog Correction per scale ACHS Goal Range: Low 110 mg/dL - High 140 mg/dL Correction Factor: 20 mg/dL/unit * Prandial insulin: Per carb ratio of 1 unit per 7 grams CHO consumed * Oral Agents: On hold ASSESSMENT: 07/18 * Hodan received 50 units of basal and 42 units of bolus insulin yesterday for a total of 92 units * Her PM dose of 30 units should have been less since the steroids were stopped, which is most likely why she had a low BSG this AM (63 mg/dL on PRP) * Steroids have been tapered to prednisone 40 mg qAM * Since she has received close to her outpatient dose of basal the last 2 days on higher doses of steroids and her fasting BSG dropped, she will need a reduction in her basal dose. * Of note, she had postprandial elevations in BSGs yesterday so will need tighter carb coverage * Will adjust based on est TDD ~70 units on prednisone 40 mg daily 07/17 * 79 yo F with persistent hyperglycemia last night and overnight. * AM fasting BSG elevated to 204 mg/dL despite a total of 14 units of correctional insulin received overnight. Will give an additional 20 units of Lantus this AM * BSG decreased significantly from breakfast to lunch (204 to 91 mg/dL) - po ssibly 2nd Novolog parameters too tight. Will loosen Novolog * Will add sliding scale Lantus tonight based on BSG - will not be too aggressive as steroids are likely tapering tomorrow * Will add one overnight check 2nd decreased Lantus dose this evening PLAN FOR INPATIENT GLYCEMIC CONTROL: * Continue to hold outpatient oral diabetes medications * Basal insulin - decrease by at least 30% * Lantus qHS per the following scale: * 25 units for BSG < 110 * 35 units for BSG 110 or above * Bolus insulin - tighten CR slightly to prevent postprandial elevations * NovoLog per scale ACHS or Q6hrs while NPO * Goal Range: Low 110 mg/dL - High 150 mg/dL * Correction Factor: 20 mg/dL/unit * Nutritional / Prandial insulin per carb ratio of 1 unit per 6 grams CHO consumed PLAN FOR DISCHARGE: * A1c 5.3% on 07/17/19 * Goal A1c < 7% based on comorbidities/age * Would recommend to continue outpatient regimen on discharge, as long as patient not experiencing hypoglycemia at home
--- NOTE | 2019-07-18 14:08 | Hospitalist Progress Note ---
Date of Service July 18, 2019 Assessment & Plan (1) Pneumonia: CXR on 07/16 showed airspace opacities left greater than right. Flu swab was negative. - Continue ceftriaxone/doxycycline - Will taper steroid to prednisone daily from IV - Can worsen weakness from acetylcholinesterase inhibitors, so do not want a prolonged period. - Continue DuoNebs PRN (2) Acute respiratory failure: Due to pneumonia. Acute hypoxemic respiratory failure. - Patient had respirations > 25 and pulse ox of 87% on room air. - See above management (3) Hypertension: BP stable today at 120/55. - Continue home amlodipine, carvedilol, furosemide, hydralazine, and Imdur (4) Congestive heart failure: No major swelling on exam or crackles on lung exam. Weight is stable from admission. I&Os indicate being positive; however, voids not consistently measured. Low concern for exacerbation. - BNP was 1025 on admission. - Continue heart failure regimen (5) Diabetes mellitus type 2 in obese: A1c was 5.3% this admission. - Hold home oral meds. - Sliding scale insulin - Sugars stable today: 80-150 mostly (6) Hyperlipidemia: - Continue statin (7) Myasthenia gravis: Presumed diagnosis of myasthenia gravis given the CellCept & pyridostigmine. - Continue home meds - No indication of exacerbation at this time - Avoid meds that can potentiate an MG crisis. (8) DVT prophylaxis: Heparin 5000 units Q12h Subjective Feeling some better today. Still having some shortness of breath with ambulation. Improved cough. Review of Systems Review of Systems: All systems reviewed & are unremarkable except as noted in HPI & below Physical Exam Constitutional: WD/WN, vitals as above Eyes: EOM intact bilaterally; no conjunctival abnormality ENMT: external ear and nose normal, oropharynx normal Neck: trachea midline, no thyromegaly normal visual inspection Respiratory: normal respiratory effort, lungs clear to auscultation no respiratory distress Cardiovascular: RRR, no murmur, no edema Gastrointestinal (Abdomen): Inspection/Auscultation: abdomen normal to inspection; abdomen not distended Musculoskeletal: no cyanosis or clubbing, extremities motor strength 5/5 Skin: no rashes, warm and dry Neurologic: moves all extremities and awake Psychiatric: Orientation: alert, oriented to person and cooperative Results & Data Vital Signs (Past 12 Hours) Vital Signs Temp Pulse Resp BP Pulse Ox 07/18/19 07:11 36.6 C 59 L 16 120/54 L 91 PG Care Time/CCT Total # of Minutes Spent Total Time Spent with Patient: Total time spent is greater than 50% in coordination of care (as documented) at patient's floor/unit and/or counseling patient:
[2019-07-18] MEDS: FLUTICASONE/SALMETEROL 250/50 (ADVAIR) 14 PUFF/1 INHALER INH SCH (20:27)
[2019-07-18] MEDS: ALPRAZolam 0.25 MG TABLET PO SCH (20:28)
[2019-07-18] MEDS ORDERED: INSULIN GLARGINE SOLOSTAR 100 UNITS/ML 3 ML PEN SC SCH (21:00)
[2019-07-19 05:23] LABS: Basophils # (auto) 0.01 K/uL (0-0.2); Basophils % (auto) 0.2 %; Eosinophils # (auto) 0.02 K/uL (0-0.5); Eosinophils % (auto) 0.4 %; Hematocrit (blood only) 31.9 % (37-47); Hemoglobin 9.9 g/dL (12.0-16.0); Immature Granulocytes % (auto) 2.2 %; Mean Corpuscular Hemoglobin 27.9 pg (25-34); Mean Corpuscular Volume 89.9 fL (80-100); Mean Platelet Volume 9.9 fL (7.4-10.4); Monocytes # (auto) 0.49 K/uL (0.11-0.59); Monocytes % (auto) 10.8 %; Neutrophils # (auto) 3.42 K/uL (1.4-6.5); Neutrophils % (auto) 75.4 %; Platelet Count 160 K/uL (130-400); RDW Coefficient of Variation 15.9 % (11.5-14.5); RDW Standard Deviation 52.3 fL (36.4-46.3); Red Blood Count 3.55 M/uL (4.2-5.4); White Blood Count 4.54 K/uL (4.8-10.8)
[2019-07-19 06:07] LABS: Albumin Level 2.9 gm/dl (3.4-5.0); BUN Creatinine Ratio 30.3 (10-20); Calcium 8.5 mg/dl (8.5-10.1); Creatinine Clr Calc Pharmacy 85.8 ml/min; Est GFR (African American) 98.3; Est GFR (Non-African American) 84.8; Potassium 3.9 mmol/L (3.5-5.1)
[2019-07-19 06:08] LABS: Albumin Globulin Ratio 1.1 (0.9-2); Bilirubin,Total 0.5 mg/dl (0.2-1); Globulin 2.7 gm/dl (2.5-4.0); Total Protein 5.6 gm/dl (6.4-8.2)
[2019-07-19 08:01] VITALS: BP 134/60; TEMP 96.5; O2SAT 94
[2019-07-19] MEDS: FLUTICASONE/SALMETEROL 250/50 (ADVAIR) 14 PUFF/1 INHALER INH SCH (08:55)
[2019-07-19] MEDS: LACTOBACILLUS ACIDOPHILUS 1 GM PACK PO SCH (09:04)
[2019-07-19] MEDS: MYCOPHENOLATE MOFETIL 250 MG CAP PO SCH (09:04)
[2019-07-19] MEDS: SACUBITRIL-VALSARTAN 49/51 MG TAB PO SCH (09:04)
[2019-07-19] MEDS: FUROSEMIDE 40 MG TAB PO SCH (09:05)
[2019-07-19] MEDS: ISOSORBIDE MONO EXTENDED REL 60 MG TABCR PO SCH (09:05)
[2019-07-19] MEDS: carvediloL 3.125 MG TAB PO SCH (09:05)
[2019-07-19] MEDS: PYRIDOSTIGMINE BROMIDE 60 MG TAB PO SCH ×2 (09:06→10:00)
[2019-07-19] MEDS: NAPROXEN 250 MG TAB PO SCH (09:06)
[2019-07-19] MEDS: AMLODIPINE BESYLATE 5 MG TAB PO SCH (09:06)
[2019-07-19] MEDS: predniSONE 20 MG TAB PO SCH (09:07)
[2019-07-19] MEDS: METHENAMINE HIPPURATE 1 GM TAB PO SCH (09:08)
[2019-07-19] MEDS: cefTRIAXone SODIUM 2,000 MG in DEXTROSE 5% 50 ML IV SCH (09:30)
[2019-07-19] MEDS: DOXYCYCLINE HYCLATE 100 MG in DEXTROSE 5% 100 ML IV SCH (09:31)
[2019-07-19] MEDS: INSULIN ASPART 100 UNITS/ML 3 ML PEN SC SCH ×2 (09:37→13:23)
[2019-07-19] MEDS: HEPARIN SOD 5,000 UNIT/0.5 ML VIAL SQ SCH (09:38)
[2019-07-19] MEDS: ROSUVASTATIN CALCIUM 5 MG TAB PO SCH (09:44)
[2019-07-19 13:37] VITALS: PULSE 71
--- NOTE | 2019-07-19 14:00 | Pharmacy Report ---
Pharmacy Glycemic Short Note 2 - Date of Service July 19, 2019 - Glycemic Short BSG Results (Last 24 hours): 07/18/19 07/18/19 07/19/19 16:51 19:51 04:57 Glucose 111 H POC Glucose 229 H 265 H 07/19/19 07/19/19 08:13 11:43 Glucose POC Glucose 77 134 H OUTPATIENT ANTIDIABETIC REGIMEN: * Toujeo 46 units SC HS * Metformin/sitagliptin 1000/50 mg po BID * A1c = 5.3 % 07/17/19 ASSESSMENT: * Continues on ceftriaxone and doxycycline for treatment of pneumonia * Steroids tapered to prednisone 40 mg PO daily on 07/18 - patient continues no this dose * Patient received 61 units of insulin yesterday (35 of which were basal) * Fasting BSG this morning of 77 mg/dL, which may still be partially reflective of the 50 units of basal that she received on 07/17/19 * BSGs ranging 80-265 mg/dL and climbed throughout the day * Likely due to steroid-induced hyperglycemia * Further tightened CF and CR today PLAN FOR INPATIENT GLYCEMIC CONTROL: * Continue to hold outpatient oral diabetes medications * Basal insulin - will maintain Lantus scale for this evening * Lantus qHS per the following scale: * 25 units for BSG < 110 * 35 units for BSG 110 or above * Bolus insulin - tighten CF and CR * NovoLog per scale ACHS or Q6hrs while NPO * Goal Range: Low 110 mg/dL - High 150 mg/dL * Correction Factor: 15 mg/dL/unit * Nutritional / Prandial insulin per carb ratio of 1 unit per 5 grams CHO consumed PLAN FOR DISCHARGE: * A1c 5.3% on 07/17/19 * Goal A1c < 7% based on comorbidities/age * Would recommend to continue outpatient regimen on discharge, as long as patient not experiencing hypoglycemia at home
--- NOTE | 2019-07-19 17:16 | Discharge Summary ---
Date of Service July 19, 2019 Admission HPI Per Admitting Provider Patient is a 79 years old female with past medical history of congestive heart failure, diabetes mellitus type 2, hypertension, hyperlipidemia, recurrent urinary tract infections who presents to the emergency room with a complaint of shortness of breath and febrile illness for 2 weeks. Patient said that she had subjective fever yesterday and chills. Patient he is resting comfortably in the bed. She is right now on 2 L of oxygen for hypoxia. She uses only 1 L at home at night. Patient is ambulatory. Good appetite. Patient denies headache, chest pain, abdominal pain frequency urgency hemoptysis hematuria dysuria syncope near syncope and/or diarrhea. Labs are reviewed: WBC leukopenia of 4.59, hemoglobin 10.3, hematocrit 33, platelets 144, PT 11.7, INR 1.2, APTT 24.7, sodium 139, potassium 4.2, BUN 14, creatinine 0.55, GFR 90.5, AST 11, ALT 16, troponin 0 0.015-, urine positive for nitrates, leukocyte esterase negative, 5-10 urine white blood cells. BNP pending. Chest x-rays: Bilateral asymmetric expansile spot opacities left greater than the right. Pneumonia is diagnosis of exclusion. Decision was made to admit patient to PCU on telemetry for pneumonia and possible congestive heart failure. Principal Diagnosis Pneumonia Discharge Exam Constitutional WD/WN, vitals as above Eyes EOM intact bilaterally; no conjunctival abnormality ENMT external ear and nose normal, oropharynx normal Neck trachea midline, no thyromegaly normal visual inspection Respiratory normal respiratory effort, lungs clear to auscultation no respiratory distress Cardiovascular RRR, no murmur, no edema Gastrointestinal (Abdomen) Inspection/Auscultation: abdomen normal to inspection; abdomen not distended Musculoskeletal no cyanosis or clubbing, extremities motor strength 5/5 Skin no rashes, warm and dry Neurologic moves all extremities and awake Psychiatric Orientation: alert, oriented to person and cooperative Discharge Data Allergies Allergy/AdvReac Type Severity Reaction Status Date / Time Bactrim Allergy Unknown MOUTH SORES Verified 10/21/15 05:55 Cipro Allergy Unknown SORE MOUTH Verified 10/21/15 05:55 ciprofloxacin Allergy Unknown SORE MOUTH Verified 07/16/19 12:00 oxycodone Allergy Unknown UPSET Verified 07/16/19 12:00 STOMACH sulfamethoxazole Allergy Unknown MOUTH SORES Verified 07/16/19 12:00 trimethoprim Allergy Unknown MOUTH SORES Verified 07/16/19 12:00 Consultations 07/16/19 14:09 ED Decision to Admit Stat Hospital Course (1) Pneumonia: CXR on 07/16 showed airspace opacities left greater than right. Flu swab was negative. - Ceftriaxone/doxycycline while admitted - Switched to cephalexin and doxycycline PO for 4 more days - Total of a 7-day course which is a bit long for PNA, but probably warranted given her immunosuppression. - 3-day steroid burst, then return to home dosing of 5mg PO daily. (2) Acute respiratory failure: Due to pneumonia. Acute hypoxemic respiratory failure. - Patient had respirations > 25 and pulse ox of 87% on room air. - See above management (3) Hypertension: BP stable today at 120/55. - Continued home amlodipine, carvedilol, furosemide, hydralazine, and Imdur (4) Congestive heart failure: No major swelling on exam or crackles on lung exam. Weight is stable from admission. I&Os indicate being positive; however, voids not consistently measured. No concern for exacerbation. - BNP was 1025 on admission. - Continued heart failure regimen -> No exacerbation while inpatient. (5) Diabetes mellitus type 2 in obese: A1c was 5.3% this admission. - Held home oral meds while inpatient -> Return to them on discharge. (6) Hyperlipidemia: She wanted to stop her statin for muscle aches. She could consider pravastatin with her PCP. (7) Myasthenia gravis: Diagnosis of myasthenia gravis at [place]. - Continue home meds - No indication of exacerbation while here. She reported no lower extremity weakness which was her presenting issue with it. - Avoided meds that can potentiate an MG crisis. (8) DVT prophylaxis: Heparin 5000 units Q12h Total Time Total Time Spent Total Time Spent (In Minutes): 35 Total Time Includes: Examination of the Patient, Medication Reconciliation and Communication With Other Providers Discharge Plan Discharge Items Patient Disposition: Home - Self-Care Reason For Visit: SOB,PNEUMONIA Discharge Diagnosis: Pneumonia Activity: Resume your previous activity Non-emergency contact: Primary Care Provider and Neurologist Call non-emergency contact if: your symptoms worsen and your temperature is above 101 Follow-up/Referrals: John Munoz, DO [Primary Care Provider] - (Please, follow up at Dr. Munoz's office. *A nurse from his office will call you to schedule this appointment. If you have any questions, call the office at [phone].) Diet: Carb Consistent or DM2 and Heart Healthy Addtl Attending Provider Instructions: Ms. Brush, You were admitted to the hospital with pneumonia and shortness of breath. We treated you with antibiotics and steroids. We did not see any sign of a myasthenia flare-up. Our medications were chosen to avoid exacerbating it as well. Over the course of a few days, your breathing and cough improved. You walked around and reported feeling slightly short of breath, but overall, were improving. You needed oxygen initially, but have now returned to breathing well on room air. Take the first doses of your two antibiotics tomorrow morning, along with the steroid. Take the prednisone 40 mg (2 tablets) for 3 days, then return to your 5 mg daily dosing. Each antibiotic should be take 2 times per day until they are all gone. Please finish the antibiotic course we prescribed to help kill off the pneumonia. Please finish the steroid course to help reduce the inflammation in your lungs. Please follow up with your PCP this week or next to be sure your breathing has returned to normal. If you have more weakness in your legs, please, please contact your PCP or neurologist to make sure you are not having a myasthenia flare. The cholesterol medication we discussed was called pravastatin (or Pravachol). Please talk with your PCP about it. Pending Studies at Discharge: No Stand-Alone Forms: [facility] Medications and DC Order Prescriptions: New acetaminophen [Mapap (acetaminophen)] 325 mg Tablet 650 mg PO Q4H PRN (Reason: pain) Qty: 1 RF: 0 prednisone 20 mg tablet 40 mg PO DAILY 3 Days Qty: 6 RF: 0 cephalexin [Keflex] 500 mg capsule 500 mg PO Q12H Qty: 8 RF: 0 doxycycline hyclate 100 mg tablet 100 mg PO BID Qty: 8 RF: 0 Continued Lacto.acidophilus-Bif.animalis 31 billion cell capsule 1 cap PO DAILY RF: 0 insulin glargine U-300 conc 300 unit/mL (3 mL) insulin pen 46 units subcut HS RF: 0 fluticasone furoate-vilanterol 100-25 mcg/dose blister with device 1 puffs inhalation DAILY RF: 0 sitagliptin-metformin 50-1,000 mg tablet 1 tab PO BID RF: 0 coenzyme Q10 200 mg capsule 200 mg PO DAILY RF: 0 methenamine mandelate 1 gram tablet 1 g PO BID RF: 0 amlodipine 10 mg tablet 10 mg PO DAILY RF: 0 alprazolam 0.25 mg tablet 0.25 mg PO DAILY RF: 0 mycophenolate mofetil 500 mg tablet 500 mg PO BID Qty: 120 RF: 0 isosorbide mononitrate 120 mg tablet extended release 24 hr 120 mg PO DAILY RF: 0 hydralazine 25 mg tablet 25 mg PO TID Qty: 270 RF: 0 prednisone 5 mg tablet 5 mg PO DAILY Qty: 60 RF: 0 albuterol sulfate [Ventolin HFA] 90 mcg/actuation HFA aerosol inhaler 2 puffs INH BID PRN (Reason: Shortness Of Breath) RF: 0 furosemide 40 mg tablet 40 mg PO DAILY RF: 0 carvedilol 3.125 mg tablet 3.125 mg PO BID RF: 0 pyridostigmine bromide 60 mg tablet 60 mg PO DAILY RF: 0 enalapril maleate 2.5 mg tablet 2.5 mg PO BID RF: 0 Discontinued naproxen 500 mg Tablet 500 mg PO BID RF: 0 rosuvastatin 5 mg tablet 5 mg PO DAILY RF: 0 Discharge Orders: Discharge Order (Routine); Ordered 07/19/19 Ordered By: Jonathan Carlson Admission Data Admit Date/Time: 07/16/19 16:21 Attending Provider: Jonathan Carlson Admit Provider: Bam Callaway Primary Care Provider: John Munoz Other Providers: Jonathan Carlson ; Bam Callaway Other Interventions: Discharge Summary Assessment (RN) Last Done: 07/19/19 13:35 DC Date/Time DO NOT enter until pt leaves facility: 07/19/19 16:39
== END 2019-07-19 16:39 | disposition home or self-care (01) | DRG 193 ==
LOC: ED 11:21 → SUATTDRO 16:21 → 2E 16:21 → 4W 07-17 14:24